=== PATIENT | female | born 1970 | race Caucasian/White ===

== ENCOUNTER 2020-01-22 13:34 | Outpatient (REF) | payer MEDICARE, MEDICAID, SELFPAY ==
--- NOTE | 2020-01-22 | MR_ITS ---
MR CERVICAL SPINE WITHOUT CONTRAST CLINICAL INFORMATION: White matter changes. Ataxia. Weakness in the legs. COMPARISON: None available. TECHNIQUE: MRI of the cervical spine was obtained using routine sequences without contrast. FINDINGS: Straightening of the cervical lordosis. Mild anterior subluxation of C3 on C4. The vertebral body heights are maintained. Multilevel endplate osteophytes. Modic type II endplate signal changes at C4-C5, C5-C6, and C6-C7. There is bone marrow edema within the right C5 and C6 facets that is most likely degenerative or inflammatory. There is no additional bone marrow edema. There are no acute fractures. Chronic compression fracture at T5. There is no cord signal abnormality. The cervical arterial flow voids are maintained. There are no significant soft tissue findings. C2-C3: Disc contour is normal. Bilateral facet arthropathy. No central canal stenosis and no foraminal stenosis. C3-C4: Disc osteophyte mildly narrows the central canal. Uncovertebral joint hypertrophy and hypertrophic facet arthropathy result in severe left-sided foraminal stenosis. No central canal stenosis. Mild right foraminal encroachment. C4-C5: Disc osteophyte mildly narrows the central canal. Uncovertebral joint hypertrophy and hypertrophic facet arthropathy result in severe right and moderate left foraminal stenosis. C5-C6: Disc osteophyte mildly narrows the central canal. Uncovertebral joint hypertrophy and hypertrophic facet arthropathy result in severe right-sided foraminal stenosis. C6-C7: Disc osteophyte mildly narrows the central canal. Uncovertebral joint hypertrophy and hypertrophic facet arthropathy result in severe left and mild to moderate right-sided foraminal stenosis. C7-T1: Disc contour is normal. No central canal stenosis and no foraminal stenosis. MR/MR cervical spine wo con IMPRESSION: Multilevel cervical spondylosis. Multifactorial degenerative changes result in severe left C3-C4, severe right and moderate left C4-C5, severe right C5-C6, and severe left C6-C7 foraminal stenosis. There is no severe central canal stenosis within the cervical spine. No cervical cord compression and no cord signal abnormality. Marrow edema within the right C5 and C6 facets is most likely degenerative or inflammatory
== END 2020-01-22 13:35 | disposition home or self-care (01) ==
LOC: HO.MRI 13:34
PROVIDERS: PCP Internal Medicine; Visit Provider Psychiatry & Neurology Neurology
DX: R90.82 White matter disease, unspecified (principal); R42 Dizziness and giddiness; M62.81 Muscle weakness (generalized)
CPT/HCPCS: 72141

== ENCOUNTER 2020-07-27 09:35 | Emergency (ER) | payer MEDICARE, MEDICAID, SELFPAY ==
--- NOTE | ~2020-07-27 | XR_ITS ---
EXAMINATION: XR CHEST CLINICAL INFORMATION: Weakness and pneumonia. COMPARISON: None TECHNIQUE: Frontal view of the chest was obtained. FINDINGS: The lungs are well-expanded with patchy ill-defined opacities in both upper lungs and lower lungs but no confluent infiltrate. No pleural effusion. The heart size and pulmonary vascularity is normal. No gross bony abnormality seen. There is old healed right posterior lateral ninth rib fracture. Soft tissues are normal. XR/XR chest 1V IMPRESSION: Minimal ill-defined patchy opacity in the upper and lower lungs question infiltrate.
--- NOTE | ~2020-07-27 | CT_ITS ---
EXAMINATION: CT BRAIN CT CERVICAL SPINE CT FACIAL BONES CLINICAL INFORMATION: Fall. COMPARISON: MRI cervical spine 01/22/2020, MRI brain 10/24/2019. TECHNIQUE: 5 mm thin axial and reformatted 2 mm thin sagittal and coronal images of brain were obtained. Axial 3 mm thin and reformatted 2 mm thin sagittal and coronal images of cervical spine were obtained. Lastly axial 3 mm thin and reformatted 1.5 mm thin sagittal and coronal images of facial bones were obtained. DLP: 1006 mGy-cm. FINDINGS: BRAIN: There is no acute intra-axial, extra-axial bleed, masses or midline shift. Both lateral ventricles are symmetrical in size and configuration with mild enlargement. There is no acute infarction evolution. There is mild periventricular hypodensity in both cerebral hemispheres without mass effect. There is no edema. Bone windows reveal no calvarial abnormality. There is no scalp soft tissue abnormality. There is moderate mucoperiosteal thickening with air-fluid level right maxillary sinus. The rest of the paranasal sinuses and mastoid air cells are well aerated. FACIAL BONES: There is moderate right maxillary sinus mucoperiosteal thickening. There is mild deformity right lateral maxillary wall question old versus new fracture. However, there is no soft tissue adjacent edema. The rest of the paranasal sinuses are well-aerated. The rest of the bony sinus benitez, lamina papyracea and the cribriform plate are intact. Bony orbits, optic globe, optic nerve and extraocular muscles are symmetrical and normal. There is no periorbital soft tissue swelling. There is no maxillofacial soft tissue swelling. There is moderate deviation of nasal septum to the left with paradoxical right middle turbinate. The nasopharyngeal and nasal cavity airway is patent. Bilateral TM joints are symmetrical and intact. The mandible is intact without any visible fracture. There are bilateral deformed upper premolar tooth effacing outwards, likely old. CERVICAL SPINE: There is mild reversal of cervical lordosis. The vertebral heights are normal. Grade 1 anterolisthesis C3 over C4 is noted. There is loss of C5-C6 and C6-C7 disc levels with mild posterior and moderate ventral spondylosis and bridging osteophytes. The craniovertebral junction and the C1-C2 alignment is normal. No visible acute fracture, dislocation or subluxation seen. There is moderate left C2-C3 facet joint arthropathy and hypertrophy. The lung apices are clear. The airway is widely patent. The prevertebral and paravertebral soft tissues are normal. CT/CT cervical spine wo con IMPRESSION: No acute intracranial process seen. Age-related cerebral volume loss with chronic small ischemic changes. Similar findings were seen on the previous MRI brain. Deformities of lateral wall right maxillary sinus, question new versus old fracture. No acute maxillofacial, nasal or mandibular fracture. There is diffuse mucoperiosteal thickening but no air-fluid level. Moderate deviation of nasal septum to the left. Laterally facing bilateral upper premolar teeth. No acute fracture or dislocation cervical spine. There is reversal of cervical lordosis with degenerative disc changes and spondylosis C5-C6 and C6-C7 disc levels.
[2020-07-27 09:44] VITALS: BP 143/79; PULSE 80; RESP 18; TEMP 36.4; O2SAT 100; BMI 18.3
--- NOTE | 2020-07-27 10:38 | ECG_ITS ---
Test Reason : WEAKNESS Blood Pressure : / mmHG Vent. Rate : 075 BPM Atrial Rate : 075 BPM P-R Int : 130 ms QRS Dur : 078 ms QT Int : 392 ms P-R-T Axes : 082 036 044 degrees QTc Int : 437 ms Normal sinus rhythm Normal ECG When compared with ECG of 17-FEB-2011 03:56, No significant change was found Referred By: Vamsi Alvarez Electronically Signed By:BENJAMIN KOVACS
--- NOTE | 2020-07-27 10:42 | ED_ITS ---
HPI - General Adult General Chief complaint: Weakness Stated complaint: confirmed ankle fracture, pain today Time Seen by Provider: 07/27/20 10:09 Source: patient Mode of arrival: ambulatory Limitations: no limitations History of Present Illness HPI narrative: Patient presents to ED for weakness since fracture of her ankle in July 03. Patient describes weakness as more lethargic. Patient denies any loss of vision, facial droop, slurred speech, paralysis of extremities, or any confusion. Mother denies patient being altered. Patient ambulating with walker at home. Related Data Previous Rx's Medication Instructions Recorded azithromycin See Rx Instructions .ROUTE 07/27/20 .COMPLEX #6 tab cefpodoxime 200 mg PO Q12H 7 Days #14 tab 07/27/20 Allergies Allergy/AdvReac Type Severity Reaction Status Date / Time amoxicillin [AMOXICILLIN] Allergy Severe ANAPHYLAXIS Unverified 11/15/19 16:11 Review of Systems Review of Systems: Yes all other systems are reviewed and are negative Constitutional: Constitutional: Reports as per HPI, Reports no additional constitutional complaints and Reports weakness Eyes: Eyes: Reports as per HPI and Reports no additional eye complaints ENT: Reports system reviewed and no additional complaints, except as documented and Reports as per HPI Cardiovascular: Cardiovascular: Reports as per HPI and Reports no additional cardiovascular complaints Respiratory: Respiratory: Reports as per HPI and Reports no additional respiratory complaints Gastrointestinal: Gastrointestinal: Reports as per HPI and Reports no additional gastrointestinal complaints Genitourinary: Genitourinary: Reports no additional female genitourinary complaints and Reports as per HPI Musculoskeletal: Musculoskeletal: Reports no additional musculoskeletal complaints and Reports as per HPI Comments: Right ankle fracture Neurologic: Reports system reviewed and no additional complaints, except as documented, Reports as per HPI and Reports weakness Psychiatric: Psychiatric: Reports no additional psychiatric complaints and Reports as per HPI [facility] Social History Social History Advance Directives: No Advance Directives Information Provided: No Patient : No Physical Exam Vital Signs: Vital Signs: Last Vital Signs Temp 97.3 F 07/27/20 14:23 Pulse 71 07/27/20 14:23 Resp 16 07/27/20 14:23 BP 118/67 07/27/20 14:23 Pulse Ox 99 07/27/20 14:23 Body Mass Index 18.3 Const: General: cooperative, healthy appearing, comfortable, no acute distress, well developed, alert, awake and Physically active Orientation/consciousness: patient oriented x3 HENMT: Other: Left facial ecchymosis Head: Yes normal to inspection, Yes No palpable skull fracture present, Yes normocephalic and Yes atraumatic Eyes: General: appearance normal, both eyes and all related structures Neck: Neck: Yes normal visual inspection, Yes full ROM, Yes no lymph adenopathy, Yes no meningeal signs, Yes trachea midline, Yes supple and No tender Chest: Chest palpation & inspection: normal inspection of the chest and normal palpation of entire chest wall Resp: Effort & Inspection: normal respiratory effort and able to speak in complete sentences Auscultation: clear to auscultation bilaterally Cardio: Jugular venous distension: no JVD Heart sounds: S1 normal heart sound present and S2 normal heart sound present GI: Other: Rectal exam negative for kenya blood or black stool. Stool is brown Inspection: Yes normal to inspection and No abdominal wall ecchymosis Palpation (GI): Soft to palpation, not firm, nontender, no guarding and not rigid : General: No CVA tenderness and Yes no CVA tenderness Back/Spine/Pelvis: Back: no CVA tenderness, No CVA tenderness and No back tenderness Skin: General skin exam: no rashes or lesions noted and elasticity normal Neuro: Other: Negative facial droop. Negative slurred speech. All extremities equal strength 5+. Negative pronator drift. [id number] test and rapid hand movement intact. Negative Romberg General: patient oriented x3, no meningeal signs and CN's II-XI intact bilaterally Cranial nerves: Yes CN's II-XII intact bilaterally Extrem: Other: Left ankle fracture. General: Yes normal to inspection and Yes full ROM Psych: Appearance: grossly normal, well kempt and not disheveled Course Course Course Narrative: Will do medical evaluation of patient. Will send patient imaging of head,neck, and face. Reevaluation(s) Reevaluation #1: EKG negative for STEMI. Negative for any neuro deficits. Due to patient falling last week was sent for head CT to make sure does not bleed. Send troponin. Will send labs including CPK and magnesium. Waiting for x-ray or UA to look for signs of infection as possible cause of weakness. Reevaluation #2: Patient usually ambulates with walker. I saw patient walking around the ER with her walker without any help. Rectal exam was done due to drop in hemoglobin/hematocrit. Stool guaiac came back negative. Chest x-ray shows pneumonia and UA positive for UTI. Reevaluation #3: Head CT, facial CT and cervical spine CT negative for any brain bleed or any acute fractures. Patient states she would like to go home. Patient ate food. Patient be discharged. Medical Decision Making MDM Narrative Medical decision making narrative: UTI. Pneumonia Lab Data Result diagrams: 07/27/20 10:59 07/27/20 10:58 Labs: Lab Results 07/27/20 07/27/20 07/27/20 Range/Units 10:58 10:59 10:59 WBC 5.5 (4.8-10.8) X10*3/uL RBC 2.77 L (4.20-5.50) X10*6/uL Hgb 10.4 L (12.0-16.0) g/dl Hct 30.7 L (37-47) % MCV 110.8 H (80-98) fL MCH 37.5 H (27.0-33.0) pg MCHC 33.9 (31.0-35.0) g/dl RDW 17.7 H (11.0-16.0) % Plt Count 150 L (160-400) X10*3/uL MPV 10.4 (9.4-12.3) fL Immature Gran % (Auto) 0.4 (0.0-0.4) % Neut % (Auto) 56.5 (45-73) % Lymph % (Auto) 24.0 (20-40) % [place] % (Auto) 16.9 H (2-11) % Eos % (Auto) 1.3 (0-4) % Baso % (Auto) 0.9 (0-2) % Lymph # (Auto) 1.3 (1.2-4.9) X10*3/uL [place] # (Auto) 0.9 (0.1-1.2) X10*3/uL Eos # (Auto) 0.1 (0.0-0.4) X10*3/uL Baso # (Auto) 0.1 (0.0-0.2) X10*3/uL Abs Immat Gran (auto) 0.02 (0.00-0.03) X10*3/uL Absolute Neuts (auto) 3.1 (2.0-8.3) X10*3/uL Absolute Nucleated RBC 0.000 (0.0-0.012) X10*3/uL Nucleated RBC % (auto) 0.0 (0.0-0.2) /100WBC PT 13.4 H (10.8-13.0) SEC INR 1.1 (0.9-1.1) APTT 36.4 (24.1-38.0) SEC Sodium 136 (135-145) mmol/L Potassium 4.5 (3.3-5.1) mmol/L Chloride 100 (96-108) mmol/L Carbon Dioxide 26 (22-29) mmol/L Anion Gap 15 (12-20) BUN 10 (9-16) mg/dL Creatinine 0.67 (0.5-1.4) mg/dL Estim Creat Clear Calc 79.1 Estimated GFR > 60 Random Glucose 97 (60-115) mg/dL Calcium 9.4 (8.4-10.2) mg/dL Magnesium 2.1 (1.6-2.6) mg/dL Total Bilirubin 1.3 H (0.0-1.0) mg/dL AST 52 H (5-31) U/L ALT 24 (0-31) U/L Alkaline Phosphatase 122 H (39-117) U/L Total Creatine Kinase 15 L (26-140) U/L Troponin I High Sens (<3.5-17.0) ng/L Total Protein 6.6 (6.5-8.0) g/dL Albumin 3.7 (3.5-5.0) g/dL Urine Color Urine Appearance Urine pH (5.0-8.0) Ur Specific [place] (1.005-1.025) Urine Protein (NEG-TRACE) MG/DL Urine Glucose (UA) (NEG) MG/DL Urine Ketones (NEG) MG/DL Urine Blood (NEG) Urine Nitrite (NEG) Ur Leukocyte Esterase (NEG) Urine RBC (0) /HPF Urine WBC (0-4) /HPF Ur Squamous Epith Cells /LPF Urine Bacteria /LPF Stool Occult Blood (NEGATIVE) COVID-19 (C[facility]Y) (Negative) COVID-19 Clin Com 07/27/20 07/27/20 07/27/20 Range/Units 10:59 13:11 13:11 WBC (4.8-10.8) X10*3/uL RBC (4.20-5.50) X10*6/uL Hgb (12.0-16.0) g/dl Hct (37-47) % MCV (80-98) fL MCH (27.0-33.0) pg MCHC (31.0-35.0) g/dl RDW (11.0-16.0) % Plt Count (160-400) X10*3/uL MPV (9.4-12.3) fL Immature Gran % (Auto) (0.0-0.4) % Neut % (Auto) (45-73) % Lymph % (Auto) (20-40) % [place] % (Auto) (2-11) % Eos % (Auto) (0-4) % Baso % (Auto) (0-2) % Lymph # (Auto) (1.2-4.9) X10*3/uL [place] # (Auto) (0.1-1.2) X10*3/uL Eos # (Auto) (0.0-0.4) X10*3/uL Baso # (Auto) (0.0-0.2) X10*3/uL Abs Immat Gran (auto) (0.00-0.03) X10*3/uL Absolute Neuts (auto) (2.0-8.3) X10*3/uL Absolute Nucleated RBC (0.0-0.012) X10*3/uL Nucleated RBC % (auto) (0.0-0.2) /100WBC PT (10.8-13.0) SEC INR (0.9-1.1) APTT (24.1-38.0) SEC Sodium (135-145) mmol/L Potassium (3.3-5.1) mmol/L Chloride (96-108) mmol/L Carbon Dioxide (22-29) mmol/L Anion Gap (12-20) BUN (9-16) mg/dL Creatinine (0.5-1.4) mg/dL Estim Creat Clear Calc Estimated GFR Random Glucose (60-115) mg/dL Calcium (8.4-10.2) mg/dL Magnesium (1.6-2.6) mg/dL Total Bilirubin (0.0-1.0) mg/dL AST (5-31) U/L ALT (0-31) U/L Alkaline Phosphatase (39-117) U/L Total Creatine Kinase (26-140) U/L Troponin I High Sens < 3.5 (<3.5-17.0) ng/L Total Protein (6.5-8.0) g/dL Albumin (3.5-5.0) g/dL Urine Color YELLOW Urine Appearance HAZY Urine pH 6.0 (5.0-8.0) Ur Specific [place] <= 1.005 (1.005-1.025) Urine Protein NEG (NEG-TRACE) MG/DL Urine Glucose (UA) NEG (NEG) MG/DL Urine Ketones NEG (NEG) MG/DL Urine Blood NEG (NEG) Urine Nitrite POS H (NEG) Ur Leukocyte Esterase TRACE H (NEG) Urine RBC 0-2 (0) /HPF Urine WBC 1-4 (0-4) /HPF Ur Squamous Epith Cells 1+ /LPF Urine Bacteria 3+ /LPF Stool Occult Blood NEGATIVE (NEGATIVE) COVID-19 ([facility]) (Negative) COVID-19 Clin Com 07/27/20 Range/Units 15:15 WBC (4.8-10.8) X10*3/uL RBC (4.20-5.50) X10*6/uL Hgb (12.0-16.0) g/dl Hct (37-47) % MCV (80-98) fL MCH (27.0-33.0) pg MCHC (31.0-35.0) g/dl RDW (11.0-16.0) % Plt Count (160-400) X10*3/uL MPV (9.4-12.3) fL Immature Gran % (Auto) (0.0-0.4) % Neut % (Auto) (45-73) % Lymph % (Auto) (20-40) % [place] % (Auto) (2-11) % Eos % (Auto) (0-4) % Baso % (Auto) (0-2) % Lymph # (Auto) (1.2-4.9) X10*3/uL [place] # (Auto) (0.1-1.2) X10*3/uL Eos # (Auto) (0.0-0.4) X10*3/uL Baso # (Auto) (0.0-0.2) X10*3/uL Abs Immat Gran (auto) (0.00-0.03) X10*3/uL Absolute Neuts (auto) (2.0-8.3) X10*3/uL Absolute Nucleated RBC (0.0-0.012) X10*3/uL Nucleated RBC % (auto) (0.0-0.2) /100WBC PT (10.8-13.0) SEC INR (0.9-1.1) APTT (24.1-38.0) SEC Sodium (135-145) mmol/L Potassium (3.3-5.1) mmol/L Chloride (96-108) mmol/L Carbon Dioxide (22-29) mmol/L Anion Gap (12-20) BUN (9-16) mg/dL Creatinine (0.5-1.4) mg/dL Estim Creat Clear Calc Estimated GFR Random Glucose (60-115) mg/dL Calcium (8.4-10.2) mg/dL Magnesium (1.6-2.6) mg/dL Total Bilirubin (0.0-1.0) mg/dL AST (5-31) U/L ALT (0-31) U/L Alkaline Phosphatase (39-117) U/L Total Creatine Kinase (26-140) U/L Troponin I High Sens (<3.5-17.0) ng/L Total Protein (6.5-8.0) g/dL Albumin (3.5-5.0) g/dL Urine Color Urine Appearance Urine pH (5.0-8.0) Ur Specific [place] (1.005-1.025) Urine Protein (NEG-TRACE) MG/DL Urine Glucose (UA) (NEG) MG/DL Urine Ketones (NEG) MG/DL Urine Blood (NEG) Urine Nitrite (NEG) Ur Leukocyte Esterase (NEG) Urine RBC (0) /HPF Urine WBC (0-4) /HPF Ur Squamous Epith Cells /LPF Urine Bacteria /LPF Stool Occult Blood (NEGATIVE) COVID-19 (CASSY) Negative (Negative) COVID-19 Clin Com See Note ECG Data Interpretation: Normal sinus rhythm. Ventricular rate 75. DE interval 130. QRS 78. QTC 437. Negative STEMI Discharge Plan Discharge Clinical Impression: Pneumonia, UTI (urinary tract infection) Patient Disposition: Home, Self-Care Instructions: Urinary Tract Infection in Women (ED), Bacterial Pneumonia (ED) Additional Instructions: Return to the ED immediately for any slurred speech, facial droop, paralysis of extremities, shortness of breath, chest pain, shortness of breath, slurred speech, loss of vision, flank pain, fever, chills, or any other concerning symptoms. Prescriptions: New azithromycin 500 mg tablet See Rx Instructions .ROUTE .COMPLEX Qty: 6 RF: 0 cefpodoxime 200 mg tablet 200 mg PO Q12H 7 Days Qty: 14 RF: 0 Referrals: Colby Solorzano MD [Primary Care Provider] - 2 days (X-ray shows pneumonia. UA shows UTI.) Interventions: ED Discharge Assessment Last Done: 07/27/20 16:32 Discharge Date/Time: 07/27/20 16:32 Print Language: Ethiopian
[2020-07-27 11:06] LABS: MANUAL DIFF FLAG NO
[2020-07-27 11:11] LABS: Basophils Absolute Auto 0.1 X10*3/uL (0.0-0.2); Basophils Percent Auto 0.9 % (0-2); Eosinophils Absolute Auto 0.1 X10*3/uL (0.0-0.4); Eosinophils Percent Auto 1.3 % (0-4); Hematocrit 30.7 % (37-47); Hemoglobin 10.4 g/dl (12.0-16.0); Imm Gran Abs Auto 0.02 X10*3/uL (0.00-0.03); Imm Gran Pct Auto 0.4 % (0.0-0.4); Lymphocytes Absolute Auto 1.3 X10*3/uL (1.2-4.9); Mean Corpuscular HGB Conc 33.9 g/dl (31.0-35.0); Mean Corpuscular Hemoglobin 37.5 pg (27.0-33.0); Mean Corpuscular Volume 110.8 fL (80-98); Mean Platelet Volume 10.4 fL (9.4-12.3); Monocytes Absolute Auto 0.9 X10*3/uL (0.1-1.2); Monocytes Percent Auto 16.9 % (2-11); Neutrophils Absolute Auto 3.1 X10*3/uL (2.0-8.3); Neutrophils Percent Auto 56.5 % (45-73); Platelet Count 150 X10*3/uL (160-400); Red Blood Count 2.77 X10*6/uL (4.20-5.50); Red Cell Distribution Width 17.7 % (11.0-16.0); White Blood Count 5.5 X10*3/uL (4.8-10.8)
[2020-07-27] MEDS: 0.9 % Sodium Chloride 1,000 ML 999 ML IV (11:11)
[2020-07-27 11:16] LABS: INTERNATIONAL NORM RATIO 1.1 (0.9-1.1); Prothrombin Time 13.4 SEC (10.8-13.0)
[2020-07-27 11:19] LABS: Partial Thromboplastin Time 36.4 SEC (24.1-38.0)
[2020-07-27 11:40] LABS: Troponin-I High Sensitivity < 3.5 ng/L (<3.5-17.0)
[2020-07-27 11:41] LABS: Alanine Aminotransferase 24 U/L (0-31); Albumin Level 3.7 g/dL (3.5-5.0); Alkaline Phosphatase 122 U/L (39-117); Anion Gap 15 (12-20); Aspartate Amino Transferase 52 U/L (5-31); Bilirubin Total 1.3 mg/dL (0.0-1.0); Blood Urea Nitrogen 10 mg/dL (9-16); Calcium 9.4 mg/dL (8.4-10.2); Carbon Dioxide 26 mmol/L (22-29); Chloride 100 mmol/L (96-108); Creatinine Clr Calc Pharmacy 79.1; Estimated Glomerular Filt Rate > 60; Glucose Random 97 mg/dL (60-115); Potassium 4.5 mmol/L (3.3-5.1); Sodium 136 mmol/L (135-145); Total Protein 6.6 g/dL (6.5-8.0)
[2020-07-27 13:21] LABS: Glucose Urine UA NEG (NEG); Leukocyte Esterase Urine TRACE (NEG); Nitrite Urine POS (NEG); Specific Gravity - Urine <= 1.005 (1.005-1.025); UACC Culture Trigger YES; Urine Blood NEG (NEG); Urine Ketones NEG (NEG); Urine Protein NEG (NEG-TRACE)
[2020-07-27 13:23] LABS: Appearance Urine HAZY; Color Urine YELLOW
[2020-07-27 13:24] LABS: OBS Int Ctl Valid YES; OBS1 NEGATIVE (NEGATIVE)
[2020-07-27 13:33] LABS: Bacteria Urine 3+ /LPF; RBC Urine 0-2 /HPF (0); Squamous Epithelial Cell Urine 1+ /LPF
[2020-07-27 13:53] LABS: Magnesium 2.1 mg/dL (1.6-2.6)
[2020-07-27 14:23] VITALS: BP 118/67; PULSE 71; RESP 16; TEMP 36.3; O2SAT 99
[2020-07-27 15:37] LABS: COVID-19 Test Negative (Negative)
== END 2020-07-27 16:32 | disposition home or self-care (01) ==
PROVIDERS: Physician Assistant; Emergency Provider Emergency Medicine Emergency Medical Services; PCP Internal Medicine
DX: N39.0 Urinary tract infection, site not specified (principal); J18.9 Pneumonia, unspecified organism; Z20.822 Contact with and (suspected) exposure to COVID-19; R53.83 Other fatigue
CPT/HCPCS: 36415; 70450; 70486; 71045; 72125; 80053; 81001; 81003; 82272; 82550; 83735; 84484; 85025; 85610; 85730; 87086; 87088; 87186; 87635; 93005; 96360; 99285

== ENCOUNTER 2021-04-02 11:08 | Outpatient (REF) | payer MEDICARE, MEDICAID, SELFPAY ==
[2021-04-06 12:17] LABS: Lamotrigine Lamictal 13.4 mcg/mL (4.0-18.0)
== END 2021-04-02 11:09 | disposition home or self-care (01) ==
LOC: HO.HMGCLDS 11:08
PROVIDERS: PCP Internal Medicine; Visit Provider Internal Medicine
DX: R20.0 Anesthesia of skin (principal); G40.909 Epilepsy, unspecified, not intractable, without status epilepticus; Z79.899 Other long term (current) drug therapy
CPT/HCPCS: 36415; 80175

== ENCOUNTER 2021-05-18 13:52 | Outpatient (REF) | payer MEDICARE, MEDICAID, SELFPAY ==
--- NOTE | ~2021-05-18 | US_ITS ---
EXAMINATION: US PELVIS, LIMITED/FOLLOW UP CLINICAL INFORMATION: Mass/lump lower back. COMPARISON: MRI lumbar spine 11/09/2019. TECHNIQUE: Limited ultrasound imaging to the right lower back was performed. FINDINGS: Imaging to the right lower back reveals no focal mass or fluid collection. The lump felt by the patient is prominent bony abnormality likely a prominent spinous process probably due to patient's scoliotic lumbar spine. No bony abnormality was seen on the MRI lumbar spine 11/09/2019. US/US pelvic limited IMPRESSION: Limited ultrasound imaging through the right lower back reveals no mass or fluid collection. Clinically palpable lesion is a bony prominence, likely prominent spinous process. This could be secondary to patient's levoscoliosis.
== END 2021-05-18 13:53 | disposition home or self-care (01) ==
LOC: HO.US 13:52
PROVIDERS: Visit Provider Physician Assistant
DX: R22.2 Localized swelling, mass and lump, trunk (principal)
CPT/HCPCS: 76857

== ENCOUNTER 2024-04-13 10:24 | Outpatient (REF) | payer MEDICARE, MEDICAID, SELFPAY ==
--- OUTSIDE RECORDS SUMMARY | 2024-04-13 11:18 | XMS_ITS | Clinical Summary ---
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 03/15/2019 Active albuterol HFA (PROAIR HFA ; PROVENTIL HFA ; VENTOLIN HFA) 90 mcg/actuation inhaler Inhale 2 Puffs into the lungs every 6 hours as needed for Cough or Wheezing. 07/15/2022 Active gabapentin (NEURONTIN) 600 mg tablet Take 1 tablet (600 mg total) by mouth 3 (three) times a day. 09/03/2022 Active lamoTRIgine (LaMICtal) 200 mg tablet Take 275 mg by mouth 2 times daily. Active FLUoxetine (PROzac) 40 mg capsule Take 1 capsule (40 mg total) by mouth 1 (one) time each day. 90 capsule 1 03/09/2024 Active cetirizine (ZyrTEC) 10 mg tablet Take 1 tablet (10 mg total) by mouth 1 (one) time each day. 90 each 1 03/09/2024 Active amLODIPine (NORVASC) 2.5 mg tablet Take 1 tablet (2.5 mg total) by mouth 1 (one) time each day. 90 each 1 03/09/2024 Active hydrOXYzine HCL (ATARAX) 10 mg tablet Take 1 tablet (10 mg total) by mouth 3 (three) times a day if needed for anxiety. 90 tablet 03/09/2024 Active Active Problems Problem Noted Date Diagnosed Date Epilepsy 01/24/2024 Overview (01/24/2024): Last Grand Mal seizure Dr. Lazaro, neurologist Anxiety 07/29/2023 Primary hypertension 07/29/2023 Clavicle fracture 09/28/2022 Overview (01/24/2024): 09/19 right clavicle fx Wheezing 07/01/2021 Ankle fracture 01/04/2021 Overview (01/24/2024): Left ankle fracture Erosive esophagitis 03/09/2016 Depression 08/12/2014 Mammographic microcalcification 06/28/2012 Scoliosis 09/22/2011 Tobacco use disorder 08/01/2010 Encounters Date Type Department Care Team Description 03/09/2024 9:30 AM EST Office Visit Adult Medicine [address] [phone] Cara Childs PA Primary hypertension (Primary Dx); Anxiety and depression; Screening for lipid disorders; Nonintractable epilepsy without status epilepticus, unspecified epilepsy type (CMS/HCC) 02/14/2024 Telephone Adult Medicine [address] [phone] Colby Solorzano MD Physicians Orders ([facility]/Medication & Treatment) 02/01/2024 Telephone Adult Medicine [address] [phone] Colby Solorzano MD Medication Problem 01/16/2024 Telephone Adult Medicine [address] [phone] Colby Solorzano MD from Last 3 Months Immunizations Name Administration Dates Next Due Influenza trivalent, 0.5mL, preservative free (Fluarix; FluLaval; Fluzone) ages 6mo and older (Afluria) 3 years and older 10/19/2019,12/05/2011 Influenza, Unspecified 11/28/2020 PPD Test 08/04/2015 Tdap Tetanus diptheria acell ular pertussis (Boostrix; Adacel) 7yo and older 11/22/2012 Surgical History Surgery Date Site/Laterality Comments BREAST LUMPECTOMY PROCEDURE: ---- BREAST LUMP BIOPSY ---- CERVICAL BIOPSY W/ LOOP ELECTRODE EXCISION 1992 PROCEDURE: SC CONIZATION CERVIX W/WO D&C RPR ELTRD EXC OTHER SURGICAL HISTORY PROCEDURE: EXTRACTION ERUPTED TOOTH/EXR BREAST BIOPSY 2014ish Left PROCEDURE: BX BREAST; PERC NEEDLE CORE W/IMAG GUID; COMMENT: b9 UPPER GASTROINTESTINAL ENDOSCOPY 03/09/2016 PROCEDURE: SC UPPER GI ENDOSCOPY PERFORMED; COMMENT: Duodenitis, gastritis, esophagitis biopsies taken Medical History Medical History Date Comments Epilepsy (CMS/HCC) DX:Epilepsy ( HCC); COMMENT: Has grand mal seizures (reports since age 15) Scoliosis 09/22/2011 DX:Scoliosis Depression DX:Depression; C OMMENT: was seeing counseling, but stopped Ankle fracture DX:Ankle fractur e; COMMENT: Left ankle fracture Clavicle fracture 09/28/2022 DX:Clavicle fr acture; COMMENT: 09/19 right clavicle fx Family History Medical History Relation Name Comments Breast cancer Aunt m 50s maternal Depression Father Cataracts Mother Colon cancer Neg Hx Ovarian cancer Neg Hx Uterine cancer Neg Hx Relation Name Status Comments Aunt m 50s Father Mother Social History Tobacco Use Types Packs/Day Years Used Date Smoking Tobacco: Every Day Cigarettes 0.5 41.1 Started: 02/28/1983 Smokeless Tobacco: Never Tobacco Cessation:Ready to Q uit: Not Asked; Counseling Given: Not Answered Alcohol Use Standard Drinks/Week Comments Yes 0 (1 standard drink = 0.6 oz pur e alcohol) Comments Unknown Sex and Gender Information Value Date Recorded Sex Assigned at Not on file Legal Sex Female 9:11 PM EST Gender Identity Not on file Sexual Orientation Not on file Obstetrics History Last Filed Vital Signs Vital Sign Reading Time Taken Comments Blood Pressure 100/60 03/09/2024 9:28 AM EST Pulse 82 03/09/2024 9:28 AM EST Temperature 36.1 ??C (97 ??F) 03/09/2024 9:28 AM EST Respiratory Rate - - Oxygen Saturation 92% 03/09/2024 9:28 AM EST Inhaled Oxygen Concentration - - Weight 55.6 kg (122 lb 8 oz) 03/09/2024 9:28 AM EST Height 165.1 cm (5' 5 ) 03/09/2024 9:28 AM EST Body Mass Index 20.39 03/09/2024 9:28 AM EST Plan of Treatment Upcoming Encounters Date Type Department Care Team (Late st Contact Info) Description 06/12/2024 9:45 AM EDT Office Visit Adult Medicine [address] [phone] Cara Childs PA [address] [place] [address] [phone] 09/13/2024 11:30 AM EDT Office Visit [address] [phone] Cobly Solorzano MD [address] [place] [address] [phone] Health Maintenance Due Date Last Done Comments Hepatitis B Vaccines (1 of 3 - 19+ 3-dose series) 1988 Pneumococcal Vaccine: 50+ Years (2 of 2 - PCV) 11/09/2015 11/08/2014 Pneumococcal Vaccine: Pediatrics (0 to 5 Years) and At-Risk Patients (6 to 64 Years) (2 of 2 - PCV) 11/09/2015 11/08/2014 Cervical Cancer Screening: Pap Smear 10/11/2016 10/11/2013, 10/11/2013 Breast Cancer Screening 04/12/2019 04/12/2017 Zoster Vaccines (1 of 2) 10/10/2019 Cholesterol Screening (Lipid Panel) 01/30/2022 08/09/2014 Colorectal Cancer Screening: Stool Based Tests (FOBT/FIT) 01/30/2022 Lung Cancer Screening (Low Dose CT) 01/30/2022 Medicare Annual Wellness Visit 01/30/2022 Social Influencers of Health Screening 01/30/2022 DTaP,Tdap,and Td Vaccines (2 - Td or Tdap) 11/22/2022 11/22/2012 Hypertension/CHF/CAD Annual BMP Blood Test 09/23/2023 03/15/2019 COVID-19 Vaccine ( season) 2023 07/25/2020, 06/19/2020 Influenza Vaccine (#1) 2023 2, 11/28/2020, 10/19/2019, Additional history exists Depression Screening 07/28/2024 07/29/2023 HIV Screening Completed 08/09/2014 Hepatitis C Screening Completed 08/09/2014 HIB Vaccines Aged Out No longer eligi ble based on patient's age to complete this topic HPV Vaccines Aged Out No longer eligi ble based on patient's age to complete this topic Hepatitis A Vaccines Aged Out No long er eligible based on patient's age to complete this topic IPV Vaccines Aged Out No longer eligi ble based on patient's age to complete this topic MMR Vaccines Aged Out No longer eligi ble based on patient's age to complete this topic Meningococcal ACWY Vaccine Aged Out N o longer eligible based on patient's age to complete this topic Meningococcal B Vacine Aged Out No lo nger eligible based on patient's age to complete this topic RSV Immunization Patients Under 20 months Aged Out No longer eligible based on patient's age to complete this topic Varicella Vaccines Aged Out No longer eligible based on patient's age to complete this topic Procedures Procedure Name Priority Date/Time Associated Diagnosis Comments DEPRESSION SCREENING Routine 07/29/2023 ANNUAL BMP BLOOD TEST Routine 03/15/2019 SCR MAMMO BI INCL CAD Routine 04/12/2017 11:38 AM EST Encounter for screening mammogram for malignant neoplasm of breast HEPATITIS C SCREENING Routine 08/09/2014 HIV SCREENING Routine 08/09/2014 LIPID PANEL Routine 08/09/2014 HPV Routine 10/11/2013 from Last 3 Months or Most Recently Relevant to Health Maintenance Results * Depression Screening (07/29/2023) Pathologist [facility] Depression Screening Abstracted Historical Provider HEALTH MAINTENANCE Final Result * Annual BMP Blood Test (03/15/2019) Pathologist [facility] Annual BMP Blood Test Abstracted Historical Provider HEALTH MAINTENANCE Final Result * SCR MAMMO BI INCL CAD (04/12/2017 11:38 AM EST) Anatomical Region Laterality Modality Radiographic Aubrie ging 03/28/2017 4:28 PM EST Narrative 04/12/2017 1:36 PM EST This is a summary report. The complete report is available in the patient's medical record. If you cannot access the medical record, please contact the sending organization for a detailed fax or copy. Full field digital screening mammography, reviewed with CAD and compared to previous. The breast tissue is heterogeneously dense, limiting sensitivity. No suspicious mass, architectural distortion or suspicious calcifications are identified. IMPRESSION: : Dense breast tissue, limiting the sensitivity of mammography. No mammographic evidence of malignancy. BIRADS 1-Negative; N. 5 year breast cancer risk assessment 1.3 % Lifetime breast cancer risk assessment 12.0 % Breast cancer risk category Low (<15%) Procedure Note Armando Robbins MD - 04/04/2023 This is a summary report. The complete report is available in thepatient's medical record. If you cannot access the medical record, pleasecontact the sending organization for a detailed fax or copy. Full field digital screening mammography, reviewed with CAD and comparedto previous. The breast tissue is heterogeneously dense, limitingsensitivity. No suspicious mass, architectural distortion or suspiciouscalcifications are identified. IMPRESSION: : Dense breast tissue, limiting the sensitivity of mammography. Nomammographic evidence of malignancy. BIRADS 1-Negative; N. 5 year breast cancer risk assessment 1.3 % Lifetime breast cancer risk assessment 12.0 % Breast cancer risk category Low (<15%) Result [facility] Colby Solorzano MD IMG XR PROCEDURES Final Result * HIV Screening (08/09/2014) Pathologist [facility] HIV Screening Abstracted [facility] Provider HEALTH MAINTENANCE Final Result * Hepatitis C Screening (08/09/2014) [facility] Hepatitis C Screening Abstracted [facility] Provider HEALTH MAINTENANCE Final Result * (ABNORMAL) Lipid panel (08/09/2014) [facility] LDL/HDL Ratio 2 0 - 4 Triglycerides 91 0 - 150 mg/dL Cholesterol 274(A) 0 - 200 mg/dL HDL 121 >=40 mg/dL LDL Cholesterol 135(A) 0 - 100 mg/dL Blood Venous blood specimen / Unknown [facility] Provider LAB BLOOD ORDERABLES Shanelle l Result * Cervical Cancer Screening: HPV (10/11/2013) [facility] Cervical Cancer Screening: HPV Negative, Abstracted [facility] Provider HEALTH MAINTENANCE Final Result from Last 3 Months or Most Recently Relevant to Health Maintenance Insurance [address] [place] [address] MEDICARE MEDICAID - [place] 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
[2024-04-13 14:02] LABS: Anion Gap 14 (12-20); Blood Urea Nitrogen 7 mg/dL (9-16); Calcium 9.7 mg/dL (8.4-10.2); Carbon Dioxide 21 mmol/L (22-29); Chloride 100 mmol/L (96-108); Cholesterol 202 mg/dL (<200); Estimated Glomerular Filt Rate > 60; Glucose Random 89 mg/dL (60-115); HDL Cholesterol 52 mg/dL (>40); LDL Cholesterol Calculated 130 mg/dL (<100); Potassium 4.8 mmol/L (3.3-5.1); Sodium 130 mmol/L (135-145); Triglycerides 104 mg/dL (<150)
[2024-04-13 14:10] LABS: Reflex LDLD? No
[2024-04-18 09:18] LABS: Lamotrigine Lamictal 6.4 mcg/mL (2.5-15.0)
== END 2024-04-13 10:25 | disposition home or self-care (01) ==
LOC: HO.HMGCLDS 10:24
PROVIDERS: Internal Medicine; PCP Internal Medicine; Referring Provider Psychiatry & Neurology Neurology; Visit Provider Physician Assistant
DX: Z13.220 Encounter for screening for lipoid disorders (principal); I10 Essential (primary) hypertension; G40.89 Other seizures
CPT/HCPCS: 36415; 80048; 80061; 80175